=== PATIENT | female | born 1975 | race Hispanic/Latino ===

== ENCOUNTER 2020-03-29 20:03 | Inpatient (IN) | payer OTHER, SELFPAY ==
--- NOTE | ~2020-03-29 | XR_ITS ---
XR chest 1V portable 03/29/2020 20:52 Indication: Cough with green sputum Procedure: AP portable chest Comparison: No prior studies for comparison. Findings: There is patchy bilateral airspace disease of the mid and lower lungs, compatible with pneu monia. Heart size normal. No pleural effusion or pneumothorax. No acute osseous abnormality. Impression: 1: Patchy bilateral pneumonia. Reviewed, dictated and finalized at location A. Impression: 1: Patchy bilateral pneumonia.
[2020-03-29 20:18] VITALS: BP 168/104; PULSE 120; RESP 20; TEMP 39; O2SAT 96
--- NOTE | 2020-03-29 20:34 | ED.GENADULT ---
HPI - General Adult General Chief complaint: Shortness of Breath/Dyspnea Stated complaint: fever, sob Time Seen by Provider: 03/29/20 20:20 History of Present Illness HPI narrative: Patient is a 44 y/o female complaining of fever since 2 days ago. She states that she went to [facility] 2 days and was diagnosed with UTI and started on Levaquin. She states that her temp was 102 when she was seen at [facility]. She was tested for COVID, but the result is not available yet. Since she was discharged from ED, she is still having a fever. She also has cough with greenish sputum, chest tightness and SOB. Of note, patient does not speak [place]. Patient interview is done through video triage technician. Related Data Home Medications Medication Instructions Recorded Confirmed levofloxacin [Levaquin] 750 mg PO DAILY 03/29/20 03/29/20 Allergies Allergy/AdvReac Type Severity Reaction Status Date / Time No Known Allergies Allergy Verified 03/29/20 22:08 Review of Systems Constitutional: Constitutional: Reports chills, Reports fever(s), Denies headache(s) and Denies weakness Eyes: Eyes: Denies blurry vision ENT: Denies headache(s) and Denies neck pain Cardiovascular: Cardiovascular: Reports chest pain and Reports dyspnea Respiratory: Respiratory: Reports cough and Reports dyspnea Gastrointestinal: Gastrointestinal: Denies abdominal pain, Denies diarrhea, Denies nausea and Denies vomiting Genitourinary: Genitourinary: Denies hematuria and Denies dysuria Musculoskeletal: Musculoskeletal: Denies back pain and Denies neck pain Neurologic: Denies headache(s) and Denies weakness Exam Const: General: no acute distress and well developed Orientation/consciousness: oriented to person, oriented to place, oriented to time and patient oriented x3 HENMT: Head: normocephalic Ears: external ears normal General nose exam: Normal external nose present Eyes: General: appearance normal, both eyes and all related structures Conjunctivae: conjunctivae normal Neck: Neck: normal visual inspection and full ROM Chest: Chest palpation & inspection: normal inspection of the chest and no tenderness Resp: Effort & Inspection: normal respiratory effort and able to speak in complete sentences Cardio: Rate: tachycardic Rhythm: regular rhythm GI: GI Palp: No abdominal tenderness and Yes Soft to palpation Skin: General skin exam: normal color and turgor normal Neuro: General: oriented to person, oriented to place, oriented to time and patient oriented x3 Cognition (Neuro): normal cognition Extrem: General: normal to inspection, full ROM and no pedal edema Psych: Appearance: grossly normal Mental Status: mental status grossly normal Affect: normal affect Course Consultations Consultation #1: Discussed with Dr. Mckoy, who will admit for observation Date: 03/29/20 Time: 22:20 Vital Signs Vital signs: Vital Signs Temperature 39.0 C H 03/29/20 20:18 Pulse Rate 120 H 03/29/20 20:18 Respiratory Rate 20 03/29/20 20:18 Blood Pressure 168/104 H 03/29/20 20:18 Pulse Oximetry 96 03/29/20 20:18 Temperature 38.3 C H 03/29/20 22:07 Pulse Rate 117 H 03/29/20 22:07 Respiratory Rate 20 03/29/20 22:07 Blood Pressure 119/77 03/29/20 22:07 Pulse Oximetry 96 03/29/20 22:07 Medical Decision Making Vital Signs Vital Signs: Vital Signs Temperature 39.0 C H 03/29/20 20:18 Pulse Rate 120 H 03/29/20 20:18 Respiratory Rate 20 03/29/20 20:18 Blood Pressure 168/104 H 03/29/20 20:18 Pulse Oximetry 96 03/29/20 20:18 Temperature 38.3 C H 03/29/20 22:07 Pulse Rate 117 H 03/29/20 22:07 Respiratory Rate 20 03/29/20 22:07 Blood Pressure 119/77 03/29/20 22:07 Pulse Oximetry 96 03/29/20 22:07 Lab Data Result diagrams: 03/29/20 20:56 03/29/20 20:56 Labs: Lab Results 03/29/20 03/29/20 03/29/20 Range/Units 20:56 20:56 20:56 WBC 11.7 H (4.5-10.0) K/mm3 R
[2020-03-29 21:06] LABS: Basophils Percent Auto 0.2 % (0.2-1.2); Hematocrit 39.1 % (37.0-47.0); Hemoglobin 13.5 g/dL (12.0-15.0); Immature Granulocyte Absolute 0.05 K/mm3 (0.00-0.031); Immature Granulocyte Percent A 0.4 % (0-0.5); Lymphocytes Absolute Auto 1.68 K/mm3 (0.9-3.2); Lymphocytes Percent Auto 14.4 % (18.3-44.2); Mean Corpuscular HGB Conc 34.5 g/dl (32-36); Mean Corpuscular Hemoglobin 30.8 pg (26-34); Mean Corpuscular Volume 89.3 fl (80-100); Mean Platelet Volume 10.2 fl (7.4-10.4); Monocytes Absolute Auto 0.2 K/mm3 (0.1-0.6); Monocytes Percent Auto 1.4 % (2.6-8.5); Neutrophils Absolute Auto 9.8 K/mm3 (1.3-6.7); Neutrophils Percent Auto 83.6 % (45.5-73.1); Platelet Count Result 231 k/mm3 (150-375); Red Blood Count 4.38 M/mm3 (4.2-5.4); Red Cell Distribution Width 13.1 % (11.5-14.5); White Blood Count 11.7 K/mm3 (4.5-10.0)
[2020-03-29] MEDS: ACETAMINOPHEN 325 MG TABLET 650 MG PO (21:09)
[2020-03-29 21:20] LABS: Lactic Acid Reflex 2.1 mmol/L (0.7-2.1)
[2020-03-29 21:21] LABS: Alanine Aminotransferase 59 U/L (4-35); Albumin Level 4.3 g/dL (3.5-5.1); Alkaline Phosphatase 110 U/L (38-126); Aspartate Amino Transferase 63 U/L (14-36); Bilirubin,Total 0.3 mg/dL (0.2-1.3); Blood Urea Nitrogen 7 mg/dL (7-17); Calcium 8.9 mg/dL (8.4-10.2); Carbon Dioxide 19 mmol/L (22-30); Chloride 105 mmol/L (98-107); Estimated CRCL calculation 95 ml/min; Estimated Glomerular Filt Rate > 60; Glucose 123 mg/dL (65-105); Potassium 3.7 mmol/L (3.4-5.0); Sodium 138 mmol/L (137-145)
[2020-03-29 21:29] LABS: Add Urine Microscopic? YES; Appearance Urine Clear (Clear); Bacteria Urine Trace /hpf; Bilirubin Urine Negative (Negative); Blood Urine Negative (Negative); Color Urine Yellow (Yellow); Glucose Urine UA Negative (Negative); Ketones Urine 1+ mg/dL (Negative); Leukocyte Esterase Ur Trace LEU/UL (Negative); Mucus Urine Rare /lpf; Nitrate Urine Negative (Negative); Protein Urine 1+ mg/dL (Negative); Specific Grav Ur 1.013 (1.001-1.035); Squamous Epithelial Cell Urine Few /hpf (Few); Urobilinogen Urine Negative mg/dL (<2.0); WBC Urine 0-3 /hpf
[2020-03-29] MEDS: SODIUM CHLORIDE 0.9% IV 1,000 ML 999 ML IV CONT (22:06)
[2020-03-29 22:07] VITALS: BP 119/77; PULSE 117; RESP 20; TEMP 38.3; O2SAT 96
[2020-03-29 23:46] VITALS: BP 109/94; PULSE 109; RESP 20; TEMP 37.1; O2SAT 96
--- NOTE | 2020-03-29 23:48 | PC.NURSE ---
Patient transferred to the floor at 2350 on 03/29/2020.
[2020-03-30] VITALS (11 sets, daily range): BP systolic 100–115; BP diastolic 62–74; PULSE 92–114; RESP 18; TEMP 36.8–38.3; O2SAT 93–99; BMI 28.5
[2020-03-30 00:04] LABS: Reflex Lactic Acid Yes or No Add Lactic
[2020-03-30 00:45] LABS: Lactic Acid 0.8 mmol/L (0.7-2.1)
--- NOTE | 2020-03-30 00:56 | ADMGEN ---
This patient, Allyson Vizcarra, was admitted to [facility] Surg Room 329-01. Patient/family oriented to hospital policies and general routines including ID bracelet, bed and alarms, visiting hours, pain management, procedures, bathroom and other care routines, personal items, smoking policy, room service/diet, and visiting hours. Valuables list has been completed. Information on how to activate the Rapid Response Team has been discussed. Patient/Family are encouraged to report perceived risks to care and to ask questions if they do not understand what they are told or what they should do.
[2020-03-30] MEDS: ACETAMINOPHEN 325 MG TABLET 650 MG PO ×3 (02:08→20:58)
[2020-03-30] MEDS: ONDANSETRON INJ 4 MG/2 ML VIAL IV PUSH (02:28)
[2020-03-30] MEDS: guaiFENesin/DEXTROMETHORPHAN 10 ML UDC PO ×2 (02:29→21:06)
[2020-03-30 06:43] LABS: Basophils Percent Auto 0.2 % (0.2-1.2); Hematocrit 35.4 % (37.0-47.0); Hemoglobin 12.2 g/dL (12.0-15.0); Immature Granulocyte Absolute 0.04 K/mm3 (0.00-0.031); Immature Granulocyte Percent A 0.5 % (0-0.5); Lymphocytes Absolute Auto 1.86 K/mm3 (0.9-3.2); Lymphocytes Percent Auto 21.1 % (18.3-44.2); Mean Corpuscular HGB Conc 34.5 g/dl (32-36); Mean Corpuscular Volume 90.1 fl (80-100); Mean Platelet Volume 9.8 fl (7.4-10.4); Monocytes Absolute Auto 0.2 K/mm3 (0.1-0.6); Monocytes Percent Auto 1.7 % (2.6-8.5); Neutrophils Absolute Auto 6.7 K/mm3 (1.3-6.7); Neutrophils Percent Auto 76.5 % (45.5-73.1); Platelet Count Result 220 k/mm3 (150-375); Red Blood Count 3.93 M/mm3 (4.2-5.4); Red Cell Distribution Width 13.2 % (11.5-14.5); White Blood Count 8.8 K/mm3 (4.5-10.0)
--- NOTE | 2020-03-30 07:56 | ECG_ITS ---
Measurements Intervals [place] Rate: 114 P: 0 CT: 138 QRS: 55 QRSD: 79 T: -13 QT: 302 QTc: 416 Interpretive Statements SINUS TACHYCARDIA INFERIOR INFARCT, AGE INDETERMINATE BORDERLINE T WAVE ABNORMALITY- ANTEROLATERAL LEADS BASELINE WANDER- AVF, V4-V6 ABNORMAL ECG Electronically Signed On 03-30-2020 14:09:22 CDT by Gaeg Maguire D.O.
[2020-03-30 10:06] LABS: Blood Urea Nitrogen 6 mg/dL (7-17); Calcium 8.5 mg/dL (8.4-10.2); Carbon Dioxide 20 mmol/L (22-30); Chloride 107 mmol/L (98-107); Estimated CRCL calculation 107 ml/min; Estimated Glomerular Filt Rate > 60; Glucose 99 mg/dL (65-105); Potassium 3.6 mmol/L (3.4-5.0); Sodium 136 mmol/L (137-145)
[2020-03-30] MEDS: FAMOTIDINE 20 MG/2 ML VIAL IV PUSH ×2 (10:11→20:49)
--- NOTE | 2020-03-30 10:18 | PM.IMHP ---
H&P: HPI History of Present Illness Chief complaint: pneumonia Narrative: Date of admission: 03/29/2020 Date of discharge: 03/30/2020 Allyson Vizcarra is a 44 year old previously healthy female who presented to the emergency department on 03/29/2020 with complaints of fever and chills. She had previously been evaluated at [facility] on 03/27/2020 for fever with T-max of 102.0?. She was told that she had a UTI and was started on Levaquin, which she has been taking for 2 days, however her fever persisted, prompting her to seek care. She tells me she was swabbed for COVID during her visit, and just received a phone call this morning that it came back positive. She tells me that several of her coworkers have also tested positive for COVID. She has been practicing social distancing and wearing a mask. Her chest x-ray demonstrated patchy bilateral pneumonia. A repeat COVID test is pending. She complains of cough productive of green sputum which began yesterday evening. She also notes some mild dyspnea. She denies orthopnea, increased dyspnea on exertion, or chest pain. Her biggest complaint at this time is her cough. She also feels somewhat warm right now but denies chills. She had a loose stool 2 days ago, but has not had any diarrhea since. She denies any abdominal pain, nausea, or vomiting. She denies any urinary symptoms including dysuria, hematuria, urgency, or frequency. She has no additional concerns at this time. Patient is a [place] speaker and does not speak Malay. Communication was performed with assistance of video rubberizing mechanic. Review of Systems Review of Systems: Narrative: A 12 point review of systems was reviewed with pertinent positives and negatives as per HPI. [facility] Family History Family History (Updated 03/30/20 @ 10:35 by Betsy Arenas PA-C) Mother No problems noted. Father No problems noted. Social History Social History (Updated 03/30/20 @ 10:36 by Betsy Arenas PA-C) Social History: Ms. Vizcarra lives at home with her and child. She works in a factory in [place]. She designates her Wicho as her surrogate decision maker () and she would like to be a full code. Smoking status: Never smoker Alcohol intake: never Substance use: never Living arrangements: with family Gender identity (if verbalized by the patient): Female Spiritual care concerns: No Meds Home Medications and Allergies Home Medications Medication Instructions Recorded Confirmed Type levofloxacin [Levaquin] 750 mg PO DAILY 03/29/20 03/29/20 History Allergies Allergy/AdvReac Type Severity Reaction Status Date / Time No Known Allergies Allergy Verified 03/29/20 22:08 Vital Signs Vital Signs - 24 hr 03/29/20 20:18 03/29/20 22:07 03/29/20 23:46 Temperature 102.2 F H 100.9 F H 98.7 F Pulse Rate 120 H 117 H 109 H Respiratory Rate 20 20 20 Blood Pressure 168/104 H 119/77 109/94 H Pulse Oximetry 96 96 96 03/30/20 00:15 03/30/20 02:00 03/30/20 02:08 Temperature 98.2 F 100.7 F H 100.9 F H Pulse Rate 114 H 103 H Respiratory Rate 18 18 Blood Pressure 115/71 113/74 Pulse Oximetry 98 99 03/30/20 03:08 03/30/20 03:10 03/30/20 06:00 Temperature 100.8 F H 100.8 F H 98.4 F Pulse Rate 99 Respiratory Rate 18 Blood Pressure 100/63 Pulse Oximetry 98 Exam Narrative: Exam Narrative: Ms. Vizcarra is examined alone today. She is a well-nourished, well-appearing 44-year-old female is sitting up in bed. She appears comfortable and is in no acute respiratory distress. HR 99, BP 100/63, RR 18, T 98.4?, 98% on room air Neuro: awake, alert and oriented x4, speech clear, no focal neuro deficits noted HEENMT: normocephalic, atraumatic, EOMI, sclerae anicteric, moist oral mucosa, normal oropharynx Neck: supple, no lymphadenopathy Respiratory: Bibasilar inspiratory crackles, no wheezes or rhonchi, normal respiratory effort without ac
[2020-03-30] MEDS: ENOXAPARIN 40 MG/0.4 ML SYRINGE SUB-Q (11:07)
[2020-03-30 15:06] LABS: SARS-CoV-2 RNA PCR Positive
--- NOTE | 2020-03-30 15:10 | PC.NURSE ---
Notified Betsy HURTADO that patient's COVID test was positive. No new orders were obtained.
[2020-03-31 02:00] VITALS: BP 109/72; PULSE 101; RESP 18; TEMP 37.1; O2SAT 98
[2020-03-31] MEDS: guaiFENesin/DEXTROMETHORPHAN 10 ML UDC PO (03:24)
[2020-03-31] MEDS: ALBUTEROL SULFATE (*SP) INHALER 1 PUFF (04:26)
[2020-03-31 06:00] VITALS: BP 109/67; PULSE 110; RESP 18; TEMP 37.6; O2SAT 95
[2020-03-31 06:28] LABS: Hematocrit 34.7 % (37.0-47.0); Hemoglobin 11.9 g/dL (12.0-15.0); Mean Corpuscular HGB Conc 34.3 g/dl (32-36); Mean Corpuscular Hemoglobin 30.8 pg (26-34); Mean Corpuscular Volume 89.9 fl (80-100); Mean Platelet Volume 9.4 fl (7.4-10.4); Platelet Count Result 263 k/mm3 (150-375); Red Blood Count 3.86 M/mm3 (4.2-5.4); Red Cell Distribution Width 13.5 % (11.5-14.5); White Blood Count 7.9 K/mm3 (4.5-10.0)
[2020-03-31 06:51] LABS: Alanine Aminotransferase 58 U/L (4-35); Albumin Level 3.7 g/dL (3.5-5.1); Alkaline Phosphatase 93 U/L (38-126); Aspartate Amino Transferase 61 U/L (14-36); Bilirubin,Total 0.2 mg/dL (0.2-1.3); Blood Urea Nitrogen 8 mg/dL (7-17); Calcium 8.3 mg/dL (8.4-10.2); Carbon Dioxide 24 mmol/L (22-30); Chloride 104 mmol/L (98-107); Creatine Kinase 95 U/L (30-135); Estimated CRCL calculation 93 ml/min; Estimated Glomerular Filt Rate > 60; Glucose 109 mg/dL (65-105); Lactate Dehydrogenase 753 U/L (313-618); Potassium 3.6 mmol/L (3.4-5.0); Sodium 137 mmol/L (137-145)
[2020-03-31 07:10] LABS: CRP 21.8 mg/dL (<1.0)
[2020-03-31 08:42] VITALS: TEMP 37.6
[2020-03-31] MEDS: ENOXAPARIN 40 MG/0.4 ML SYRINGE SUB-Q (08:42)
[2020-03-31] MEDS: FAMOTIDINE 20 MG/2 ML VIAL IV PUSH (08:42)
[2020-03-31] MEDS: ACETAMINOPHEN 325 MG TABLET 650 MG PO (08:42)
[2020-03-31 09:42] VITALS: TEMP 36.8
--- NOTE | 2020-03-31 12:47 | PM.DS ---
DS: Admitting Diagnosis Admitting Diagnosis Admitting Diagnosis: Pneumonia, unspecified organism DS: Discharge Diagnosis Discharge Diagnosis (1) Pneumonia: Qualifiers: Laterality: bilateral Lung location: unspecified part of lung Pneumonia type: due to unspecified organism Qualified Code(s): J18.9 - Pneumonia, unspecified organism Code(s): J18.9 - Pneumonia, unspecified organism Status: Acute Assessment and Plan: She presented with complaints of fever and cough. Her CXR showed patchy bilateral pneumonia, likely secondary to COVID-19. Tmax was 102.2? at presentation, however she remained afebrile >24 hours. She was given IV ceftriaxone azithromycin. She will continue p.o. cefdinir and azithromycin as an outpatient to complete a full course of antibiotics. Preliminary blood cultures revealed NGTD and final cultures will be monitored. She maintained adequate oxygenation with room air. (2) Suspected COVID-19 virus infection: Code(s): Z20.828 - Contact with and (suspected) exposure to other viral communicable diseases Status: Acute Assessment and Plan: Patient reportedly tested positive for COVID on 03/27/2020 at [facility]. Several of her coworkers are also COVID positive. She does have positive at this facility on 03/29/2020. She will continue care as noted above. We discussed the importance of self isolation, as well as social distance thing, mask wearing, and hand hygiene. She will be evaluated by her primary care provider via telemedicine in 1 week. I spoke with her PCP office to inform them that patient is COVID positive. (3) Sepsis: Qualifiers: Sepsis acute organ dysfunction status: unspecified Sepsis type: sepsis due to unspecified organism Qualified Code(s): A41.9 - Sepsis, unspecified organism Code(s): A41.9 - Sepsis, unspecified organism Status: Acute Assessment and Plan: Patient met criteria for sepsis at presentation with fever and tachycardia, presumably secondary to respiratory infection. Lactic was within normal limits at 0.8. Her vital signs remained stable. She was given IV antibiotics. Her blood cultures have NGTD. (4) Urinary tract infection: Qualifiers: Urinary tract infection type: site unspecified Hematuria presence: without hematuria Qualified Code(s): N39.0 - Urinary tract infection, site not specified Code(s): N39.0 - Urinary tract infection, site not specified Status: Acute Assessment and Plan: Patient reportedly diagnosed with urinary tract infection and [place] on 03/27/2020. She was initiated on Levaquin. She denied any urinary symptoms and her UA was relatively normal on 03/29 with only trace leukocyte esterase. Levaquin was discontinued. DS: Summary Hospital Course Reason for hospitalization: Shortness of breath Hospital Course: Allyson Vizcarra is a 44 year old previously healthy female who presented to the emergency department on 03/29/2020 with complaints of fever and chills. She had previously been evaluated at [facility] on 03/27/2020 for fever with T-max of 102.0?. She was told that she had a UTI and was started on Levaquin. She tested positive for COVID at [place]. She complained of cough productive of green sputum. At presentation, VSS, T 102.2, WBC 11.7, lactic 2.1, urinalysis with trace leukocyte esterase, and CXR with patchy bilateral pneumonia. She was admitted to the hospitalist service for treatment of pneumonia. Her COVID test at this facility was also positive. She was given IV antibiotics and supportive therapy. Her oxygen levels remained stable. Her cough and fever improved. Given improvement of her symptoms, patient was very anxious to be discharged and she was determined to be stable to continue supportive care at home. She will follow-up with her primary care provider via telemedicine in 1 week. We had a long discussion regarding worr
== END 2020-03-31 14:40 | disposition home or self-care (01) | DRG 137 ==
LOC: ANHED 23:01 → ANH3MEDSUR 03-30 00:19
PROVIDERS: Physician Assistant; Admitting Provider Family Medicine; Emergency Provider Emergency Medicine; Visit Provider Internal Medicine
DX: U07.1 COVID-19 (principal); A41.89 Other specified sepsis; J12.89 Other viral pneumonia; N39.0 Urinary tract infection, site not specified
CPT/HCPCS: 36415; 71045; 80048; 80053; 81001; 81025; 82550; 82728; 83605; 83615; 85025; 85027; 86140; 87040; 87635; 93005; 94640; 96365; 96367; 99285; A9270; C9803; J0456; J0696; J1650; J2405; J7030; U0003

== ENCOUNTER 2021-04-17 08:36 | Emergency (ER) | payer SELFPAY ==
[2021-04-17] VITALS (7 sets, daily range): BP systolic 104–138; BP diastolic 62–91; PULSE 72–80; RESP 16–20; TEMP 36.6; O2SAT 98–100
--- NOTE | ~2021-04-17 | US_ITS ---
US abdomen limited DATE: 04/17/2021 09:55 INDICATION: Epigastric abdominal pain, nausea and vomiting TECHNIQUE: Real-time imaging of liver, pancreas, gallbladder COMPARISON: None FINDINGS: There is a 1.5 cm filling defect with shadowing of the gallbladder neck. Borderline gallbla dder wall thickening. Negative sonographic Gray's sign. There is an approximately 2.3 cm irregular soft tissue density within the fundus of the gallbladder. Differential diagnosis includes a sludge ball versus large polyp or gallbladder carcinoma. Cholecyste ctomy is recommended. No hepatic space-occupying mass lesion is evident. Normal hepatopedal portal venous flow direction. The pancreas is not optimally evaluated due to overlying bowel gas. The common bile duct measures 5.5 mm, within upper limits of normal. IMPRESSION: Cholelithiasis, with stone fixed in position in gallbladder neck, borderline gallbladder wall thickening. Acute cholecystitis cannot be excluded Up to 2.3 cm irregular soft tissue density at the gallbladder fundus. Incidental gallbladder carcinoma is not excluded. Cholecystectomy is recommended. Reviewed, dictated and finalized at [facility]. Reviewed, dictated and finalized at location A. IMPRESSION: Cholelithiasis, with stone fixed in position in gallbladder neck, b orderline gallbladder wall thickening. Acute cholecystitis cannot be excluded Up to 2.3 cm irregular soft tissue density at the gallbladder fundus. Incidental gallbladder carcinoma is not excluded. Cholecystectomy is recommende d.
--- NOTE | ~2021-04-17 | CT_ITS ---
EXAMINATION: CT abdomen pelvis w con DATE: 04/17/2021 12:56 INDICATION: Soft tissue mass of gallbladder. Epigastric abdominal pain. TECHNIQUE: Computed tomography (CT) of the abdomen and pelvis was performed with 100 cc Omnipaque 350 intravenous contrast. Automated exposure control and iterative reconstruction technique were employe d. Exam dose: 635.18 mGy-cm total exam DLP. COMPARISON: 04/17/2021 abdominal ultrasound Limited examination FINDINGS: Minimal discoid atelectasis or scarring at the lung bases. Normal heart size. No pericardia l or pleural effusion. The liver is normal. There is thickening/edema of the gallbladder wall up to 4 mm, suggesting acute cholecystitis. No bile duct or pancreatic duct dilatation. No pancreatic mass lesion or calcification. Normal splenic size. Normal morphology of the adrenal glands. No renal mass lesion is in a couple of small right renal cyst. No urinary tract calculus or hydrouret eronephrosis is evident. The urinary bladder is unremarkable. 1.8 cm right ovarian cyst. Normal appendix. No bowel obstruction, bowel wall thickening, pneumatosis or intraperitoneal free air . Normal caliber of the abdominal aorta. No intraperitoneal or retroperitoneal or pelvic mass lesion or adenopathy or ascites. IMPRESSION: Gallbladder wall thickening/edema, in conjunction with a fixed stone at the neck of the gallbladder 04/17/2021 abdominal ultrasound examination, suggesting acute cholecystitis Reviewed, dictated and finalized at [facility]. Reviewed, dictated and finalized at location [facility]. IMPRESSION: Gallbladder wall thickening/edema, in conjunction with a fixed sto ne at the neck of the gallbladder 04/17/2021 abdominal ultrasound examination, s uggesting acute cholecystitis
[2021-04-17 09:10] LABS: Basophils Percent Auto 0.2 % (0.2-1.2); Eosinophils Absolute Auto 0.1 K/mm3 (0-0.3); Eosinophils Percent Auto 0.7 % (0-4.4); Hematocrit 43.8 % (37.0-47.0); Hemoglobin 14.8 g/dL (12.0-15.0); Immature Granulocyte Absolute 0.05 K/mm3 (0.00-0.031); Immature Granulocyte Percent A 0.5 % (0-0.5); Lymphocytes Absolute Auto 2.64 K/mm3 (0.9-3.2); Mean Corpuscular HGB Conc 33.8 g/dl (32-36); Mean Corpuscular Volume 91.8 fl (80-100); Mean Platelet Volume 9.4 fl (7.4-10.4); Monocytes Absolute Auto 0.3 K/mm3 (0.1-0.6); Monocytes Percent Auto 3.2 % (2.6-8.5); Neutrophils Percent Auto 69.4 % (45.5-73.1); Platelet Count Result 358 k/mm3 (150-375); Red Blood Count 4.77 M/mm3 (4.2-5.4); Red Cell Distribution Width 12.7 % (11.5-14.5); White Blood Count 10.1 K/mm3 (4.5-10.0)
--- NOTE | 2021-04-17 09:16 | ED.ABDPAIN ---
HPI - Abdominal Pain General Chief Complaint: Abdominal Pain Stated Complaint: ABD PAIN Time Seen by Provider: 04/17/21 09:08 History of Present Illness HPI narrative: 45 yo female presents to the ED for abdominal Pain. Sudden onset of epigastric pain radiating to the back early this morning. Assocaited with nausea and vomiting x2. This is a new problem. No prior surgeries. She has not tried anything for the pain. Related Data Allergies Allergy/AdvReac Type Severity Reaction Status Date / Time No Known Allergies Allergy Verified 04/17/21 08:45 Review of Systems Review of Systems: All systems reviewed & are unremarkable except as noted in HPI and below Constitutional: Constitutional: Denies fever(s) ENT: Denies sore throat Cardiovascular: Cardiovascular: Denies chest pain Respiratory: Respiratory: Denies dyspnea Gastrointestinal: Gastrointestinal: Reports as per HPI Genitourinary: Genitourinary: Denies hematuria and Denies dysuria Neurologic: Denies numbness and Denies weakness [facility] Family History Family History Mother No problems noted. Father No problems noted. Social History Social History Social History: Ms. Vizcarra lives at home with her and child. 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 Smoking status: Never smoker Alcohol intake: never Substance use: never Gender identity (if verbalized by the patient): Female Spiritual care concerns: No Exam Const: General: healthy appearing and alert Orientation/consciousness: patient oriented x3 Other: Mild distress HENMT: Head: normal to inspection Resp: Effort & Inspection: normal respiratory effort Auscultation: clear to auscultation bilaterally Cardio: Rate: regular rate Rhythm: regular rhythm GI: Inspection: non-distended GI Palp: Yes Soft to palpation, Yes Tenderness to palpation present (GI) (epigastrium), Yes Guarding due to palpation present (GI) and No Rebound tenderness present Skin: General skin exam: normal color Neuro: General: patient oriented x3, moves all extremities and no focal motor deficits Speech: normal speech Extrem: General: normal to inspection and no edema Course Course Emergency Course: Dr. Campos consulted. He spoke with the patient and she does not want to be admitted. He would like a CT to help better identify the mass seen on US. No mass on CT. She is adamant about being discharged. I will provide pain medication and a course of cipro. Vital Signs Vital signs: Vital Signs Temperature 36.6 C 04/17/21 08:43 Pulse Rate 80 04/17/21 08:43 Respiratory Rate 20 04/17/21 08:43 Blood Pressure 138/91 H 04/17/21 08:43 Pulse Oximetry 100 04/17/21 08:43 Temperature 36.6 C 04/17/21 10:42 Pulse Rate 75 04/17/21 17:34 Respiratory Rate 18 04/17/21 17:34 Blood Pressure 104/62 04/17/21 17:34 Pulse Oximetry 98 04/17/21 17:34 MDM - Abdominal Pain Differential Diagnosis Differential diagnosis: Likely other (acute cholecystitis, Gastritis, GERD, PUD) Medical Records Attestation: I reviewed the patient's medical records. Lab Data Attestation: I reviewed the patient's lab results. Result diagrams: 04/17/21 08:53 04/17/21 08:53 Labs: Lab Results 04/17/21 04/17/21 04/17/21 Range/Units 08:53 08:53 08:53 WBC 10.1 H (4.5-10.0) K/mm3 RBC 4.77 (4.2-5.4) M/mm3 Hgb 14.8 (12.0-15.0) g/dL Hct 43.8 (37.0-47.0) % MCV 91.8 (80-100) fl MCH 31.0 (26-34) pg MCHC 33.8 (32-36) g/dl RDW 12.7 (11.5-14.5) % Plt Count 358 (150-375) k/mm3 MPV 9.4 (7.4-10.4) fl Immature Gran % (Auto) 0.5 (0-0.5) % Neut % (Auto) 69.4 (45.5-73.1) % Lymph % (Auto) 26.0 (18.3-44.2
[2021-04-17 09:20] LABS: Add Urine Microscopic? YES; Appearance Urine Cloudy (Clear); Bilirubin Urine Negative (Negative); Blood Urine 3+ (Negative); Color Urine Yellow (Yellow); Glucose Urine UA Negative (Negative); Ketones Urine Negative (Negative); Leukocyte Esterase Ur 1+ LEU/UL (Negative); Mucus Urine Rare /lpf; Nitrate Urine Negative (Negative); Protein Urine 1+ mg/dL (Negative); RBC Urine >75 /hpf (0-2); Specific Grav Ur 1.025 (1.001-1.035); Squamous Epithelial Cell Urine Many /hpf (Few); Urobilinogen Urine Negative mg/dL (<2.0); WBC Urine 21-30 /hpf
[2021-04-17 09:22] LABS: Alanine Aminotransferase 56 U/L (4-35); Albumin Level 4.9 g/dL (3.5-5.1); Alkaline Phosphatase 66 U/L (38-126); Anion Gap 13 mmol/L (8-16); Aspartate Amino Transferase 54 U/L (14-36); Bilirubin,Total 0.5 mg/dL (0.2-1.3); Blood Urea Nitrogen 19 mg/dL (7-17); Calcium 9.6 mg/dL (8.4-10.2); Carbon Dioxide 24 mmol/L (22-30); Chloride 104 mmol/L (98-107); Estimated CRCL calculation 78 ml/min; Estimated Glomerular Filt Rate > 60; Glucose 120 mg/dL (65-110); Lipase 115 U/L (23-300); Sodium 141 mmol/L (137-145)
[2021-04-17] MEDS: MORPHINE SULFATE (*CRX) 4 MG/ML INJ IV PUSH (10:12)
[2021-04-17] MEDS: PANTOPRAZOLE SODIUM IV 40 MG VIAL IV PUSH (10:12)
[2021-04-17] MEDS: ONDANSETRON INJ 4 MG/2 ML VIAL IV PUSH (10:12)
== END 2021-04-17 17:36 | disposition home or self-care (01) ==
LOC: ANHED 11:42 → ANH3MEDSUR 15:40 → ANHED 16:53
PROVIDERS: Emergency Provider Emergency Medicine
DX: K81.0 Acute cholecystitis (principal)
CPT/HCPCS: 36415; 74177; 76705; 80053; 81001; 81025; 83690; 85025; 87077; 87086; 87088; 87186; 96374; 96375; 99284; C9113; J2270; J2405; Q9967

== ENCOUNTER 2024-11-24 10:29 | Emergency (ER) | payer SELFPAY ==
[2024-11-24 10:43] VITALS: BP 135/73; PULSE 72; RESP 16; TEMP 36.1; O2SAT 98
--- NOTE | 2024-11-24 11:10 | ED.GENADULT ---
HPI - General Adult General Chief complaint: Ear Stated complaint: right ear pain Time Seen by Provider: 11/24/24 11:11 Source: patient, RN notes reviewed and old records reviewed Mode of arrival: ambulatory Limitations: no limitations History of Present Illness HPI narrative: 49-year-old female to the [facility] ear since Sunday, 2 days. No treatment prior to arrival Related Data Allergies Allergy/AdvReac Type Severity Reaction Status Date / Time No Known Allergies Allergy Verified 11/24/24 10:39 Review of Systems Review of Systems: All systems reviewed & are unremarkable except as noted in HPI and below Constitutional: Constitutional: Reports no additional constitutional complaints ENT: Reports as per HPI and Reports otalgia (Right) Cardiovascular: Cardiovascular: Reports no additional cardiovascular complaints, Denies chest pain and Denies dyspnea Respiratory: Respiratory: Reports no additional respiratory complaints, Denies chest congestion, Denies cough and Denies dyspnea Musculoskeletal: Musculoskeletal: Reports no additional musculoskeletal complaints Integumentary/Breasts: Skin/Breast: Reports system reviewed and no additional complaints, except as docu PMFSH Family History Family History Mother No problems noted. Father No problems noted. Social History Social History Social History: Ms. Vizcarra lives at home with her and child. She works in a factory in [place]. She designates her Wicho as her surrogate decision maker (1991) and she would like to be a full code. Smoking status: Never smoker Alcohol intake: never Substance use: never Living arrangements: with family Gender identity (if verbalized by the patient): Female Spiritual care concerns: No Comments At the time of my signature, I reviewed and agree with the nursing past medical, surgical, social, and family history. There is no relevant family history pertinent to the patient complaint. Exam Const: General: cooperative, healthy appearing, comfortable, no acute distress, well developed, alert and well nourished Nutritional Appearance: well nourished Orientation/consciousness: patient oriented x3 Limitations: no limitations HENMT: Head: normal to inspection Ears: hearing grossly normal bilaterally, external ears normal, TM normal on the left, mastoids normal, no periauricular adenopathy, Abnormal EAC present excessive cerumen on the right, erythema, EAC tenderness and otic discharge; no foreign body and unable to visualize TM on the right Mouth: Yes Normal oral and palatal mucosa present, Yes lip normal, Yes tongue normal and Yes moist mucous membranes Throat: posterior oropharynx normal, uvula midline and no uvular edema Eyes: General: appearance normal, both eyes and all related structures Alignment and Position: alignment normal Neck: Neck: normal visual inspection, full ROM, no lymphadenopathy and no meningeal signs Chest: Chest palpation & inspection: normal inspection of the chest Resp: Effort & Inspection: normal respiratory effort and able to speak in complete sentences Auscultation: clear to auscultation bilaterally, no crackles, no rales, no rhonchi and no wheezes Cardio: Rate: regular rate Skin: General skin exam: normal color and no rashes or lesions noted Neuro: General: patient oriented x3, gait normal, moves all extremities and no meningeal signs Cognition (Neuro): normal cognition Speech: normal speech Gait exam (Neuro): Normal gait present Extrem: General: normal to inspection, full ROM, capillary refill normal and normal gait Psych: Appearance: grossly normal and well kempt Mental Status: mental status grossly normal Speech and movement: Normal speech and movement present and Clear speech present Affect: normal affect Attitude: cooperative Course Course Emergency Course: Unable to visualize excessive earwax is noted. Used irrigation, removed. Erythema noted to the ear canal and to the TM post removal. Patient tolerated well Level of Care: Express Care Visit Vital Signs Vital signs: Vital Signs Temperature 96.9 F L 11/24/24 10:43 Pulse Rate 72 11/24/24 10:43 Respiratory Rate 16 11/24/24 10:43 Blood Pressure 135/73 11/24/24 10:43 Pulse Oximetry 98 11/24/24 10:43 Oxygen Delivery Room Air 11/24/24 10:43 Temperature 96.9 F L 11/24/24 10:43 Pulse Rate 72 11/24/24 10:43 Respiratory Rate 16 11/24/24 10:43 Blood Pressure 135/73 11/24/24 10:43 Pulse Oximetry 98 11/24/24 10:43 Oxygen Delivery Room Air 11/24/24 10:43 Reviewed Medical Decision Making MDM Narrative Medical decision making narrative: Patient sitting comfortably in exam room. Nontoxic, vitals stable. Patient in no acute distress Patient presents for right ear pain for 2 days. Erythema noted to the canal and to TM Excessive earwax removed Patient is appropriate outpatient treatment and follow-up Discharge instructions reviewed with patient, as well as provided in writing per nursing staff. The instructions also include specific and strict return/GO TO THE ER as well as f/u information. All questions have been answered, and the patient deny any further questions with discharge and discharge plan. Some parts of this dictation were generated by voice recognition software and may contain typographical and/or grammatical inaccuracies. Differential Diagnosis Differential Diagnosis: Otitis media, serous otitis, otitis externa, URI, Medical Records Medical records reviewed: Yes I reviewed the external patient's medical records. Vital Signs Vital Signs: Vital Signs Temperature 96.9 F L 11/24/24 10:43 Pulse Rate 72 11/24/24 10:43 Respiratory Rate 16 11/24/24 10:43 Blood Pressure 135/73 11/24/24 10:43 Pulse Oximetry 98 11/24/24 10:43 Oxygen Delivery Room Air 11/24/24 10:43 Temperature 96.9 F L 11/24/24 10:43 Pulse Rate 72 11/24/24 10:43 Respiratory Rate 16 11/24/24 10:43 Blood Pressure 135/73 11/24/24 10:43 Pulse Oximetry 98 11/24/24 10:43 Oxygen Delivery Room Air 11/24/24 10:43 Reviewed Lab Data Lab results reviewed: Yes I reviewed the patient's lab results. Labs: Reviewed Critical Care Time Critical Care Time Critical Care Time: No Discharge Plan Discharge Clinical Impression: Otitis externa Qualifiers: Otitis externa type: unspecified type Chronicity: acute Laterality: right Qualified Code(s): H60.501 - Unspecified acute noninfective otitis externa, right ear Otitis media Qualifiers: Otitis media type: suppurative Chronicity: acute Laterality: right Recurrence: not specified as recurrent Patient Disposition: Home, Self-Care Condition: Stable Instructions: Antibiotic Form, Swimmer's Ear (ED), Ear Infection (GEN) Additional Instructions: Take antibiotics as prescribed Use ear drops as prescribed Take Tylenol alternating with Motrin as needed for pain Do not put anything else but the ear drops in your ear Follow-up with primary care provider in 1 week For new or worsening symptoms go directly to the emergency room Patient Language: Croatian Prescriptions: New amoxicillin-pot clavulanate 875-125 mg tablet 1 tablet PO Q12H Qty: 20 0RF ciprofloxacin-dexamethasone 0.3-0.1 % drops,suspension 5 drp EACH EAR Q12H 7 Days Qty: 7.5 0RF Follow-up/Referrals: Sandeep,Kelly PATENT PROSECUTION ATTORNEY [Primary Care Provider] - 2 Weeks ([facility] follow up ) Stand Alone Forms: Work/School Release IP Time of Disposition: 11:32
== END 2024-11-24 11:35 | disposition home or self-care (01) ==
PROVIDERS: Emergency Provider Nurse Practitioner; PCP Registered Nurse
DX: H60.501 Unspecified acute noninfective otitis externa, right ear (principal); H66.001 Acute suppurative otitis media without spontaneous rupture of ear drum, right ear
CPT/HCPCS: 99213; G0463